=== PATIENT | male | born 1945 | race Caucasian/White ===

== ENCOUNTER → 2017-05-19 | Day surgery (SDC) | payer MEDICARE ==
[~2017-05-19] MED LIST: ACCUKIT13; ACETAMINOPHEN/HYDROcodone 325 MG/7.5 MG TAB ONE; BUPIVACAINE HCL PF 0.25% 30 ML VIAL ONE; KETOROLAC TROMETHAMINE 30 MG/ML (IVP) VIAL IV PUSH ONE; LACTATED RINGER'S 1000 ML INJ 1,000 ML ONE; LISI2.5T3 PO; MEPERIDINE HCL 25 MG/ML VIAL ONE; METF1000 PO; MIDAZOLAM HCL 2 MG/2 ML VIAL ONE; MORPHINE SULFATE 4 MG/ML INJ ONE; ONDANSETRON HCL 4 MG/2 ML VIAL IV PUSH ONE; PRAV10 PO; PROPOFOL 200 MG/20 ML AMP IV ONE; ceFAZolin INJ 1,000 MG VIAL ONE
--- NOTE | 2017-05-19 15:41 | TN ---
cc: FERMIN MARTINEZ MD DATE OF SURGERY: 05/19/2017 PREOPERATIVE DIAGNOSIS Left knee torn medial meniscus, torn lateral meniscus, osteoarthritis. POSTOPERATIVE DIAGNOSIS Left knee torn medial meniscus, torn lateral meniscus, loose bodies, osteoarthritis. PROCEDURE Left knee arthroscopy with partial medial and lateral meniscectomy. PROCEDURE IN DETAIL Informed consent was obtained. The patient was taken to the operating room and placed in the supine position on the operating table. He was administered general anesthesia by Dr. Myers of the anesthesia department and at that time the left leg had a tourniquet applied and was prepped with Betadine soap followed by Betadine paint. The patient had been given a gram of Ancef prior to initiation of the operative procedure. Draping commenced after a Betadine soap and Betadine paint prep in the standard fashion with sterile U-drape, sterile stockinette over the foot and calf wrapped with Coban and an extremity drape was applied. A timeout was held and confirmed. The leg was elevated and the tourniquet was inflated to 300 mmHg. The leg was allowed to flex over the side of the operating table. The table was elevated to maximum height. At that time an 18-gauge spinal needle was placed in the region of the lateral infrapatellar portal. This region was infiltrated with 4 cc of 0.25% Marcaine with epinephrine. Infiltration was also performed in the medial patellar portal and transpatellar tendon portal region. Small incisions were made with an 11 blade in the region of the transpatellar tendon portal and the lateral infrapatellar portal. The inflow cannula was placed through the transpatellar tendon portal and the arthroscopic cannula was placed in the lateral portal. Diagnostic arthroscopy commenced in the medial compartment. The medial meniscus in the anterior and straight medial portions appeared satisfactory. A probe was placed through a medial portal and as the leg was brought into abduction and external rotation against the side post the posterior aspects of the medial compartment were examined and a tear was seen in the medial meniscus at the junction of zone 1 and 2, and a complex type tear was noted on the undersurface of zone 1. There were some chondromalacia changes approximately grade II level of the medial femoral condyle and medial tibial plateau. At that time the upbiting basket forceps and [employer] meniscal shaver were utilized to debride the medial meniscus and once satisfactory debridement was complete the scope was maneuvered over the intercondylar notch, edge of the lateral compartment. The leg was placed in a figure-four position and the lateral meniscus was examined. There was tearing of the lateral meniscus beginning at the posterior horn. There was a large frayed piece of meniscus located within the joint. Further inspection demonstrated a tear which was basically a radial tear, however, this was beyond the popliteus tendon. The soft tissue band in front of the popliteus tendon was intact. The posterior portion of the medial meniscus in zone 6 was debrided with the meniscal shaver and care was taken not to violate the popliteal hiatus. The anterior portion of the meniscus was also torn. There were undersurface tears including a large undersurface tear of the anterior horn. Utilizing the basket forceps and the [employer] meniscal shaver this was also debrided to a stable rim. It should be noted there were some chondromalacia changes noted in the lateral compartment. These were not as severe as the medial compartment. Examination of the anterior horn of the lateral meniscus demonstrated a tethered loose body in this region which was debrided and removed. There was also a smaller loose body at the anterior horn region of the medial meniscus which was removed. The scope could not be placed in the posteromedial or posterolateral compartment. The anterior and posterior cruciate ligaments appeared intact. The scope was placed in the suprapatellar pouch. This visualization was difficult, however, the undersurface of the patella did not demonstrate any significant arthritic changes. There was no pathologic plica seen, although debridement was performed within the medial and lateral parapatellar regions and synovium was debrided in these areas. At that time the knee was thoroughly irrigated and suctioned. All cannulas were removed. Each portal was closed with a single 4-0 nylon interrupted stitch. A second stitch was placed in the medial infrapatellar portal. Band-Aids, 4x4s, Sof-Rol and Genaro wrap were applied to the patient's knee. The tourniquet was then deflated. Total tourniquet time was 66 minutes. The patient tolerated the procedure well and was then taken to the recovery room in stable condition. At the completion of the procedure the sponge, instrument and needle counts were all correct. Estimated blood loss was less than 10 cc. A total of 12,000 cc of sterile saline was utilized for irrigation during this operative procedure. MD SAVANNA Ren /2:42 PM /3:23 PM
== END | disposition home or self-care (01) ==
LOC: ESDC 11:34
PROVIDERS: ATTEND Orthopaedic Surgery
DX: S83.232A Complex tear of medial meniscus, current injury, left knee, initial encounter (principal); S83.282A Other tear of lateral meniscus, current injury, left knee, initial encounter; M17.12 Unilateral primary osteoarthritis, left knee
CPT/HCPCS: 01400; 29880; J0690; J1885; J2175; J2250; J2270; J2405; J3010; J7120